=== PATIENT | male | born 1975 ===

== ENCOUNTER 2020-11-22 21:54 | Outpatient (CLI) | payer OTHER | END 2020-11-22 21:55 | disposition home or self-care (01) | LOC: PPH VACUNA 21:54 | DX: Z23 Encounter for immunization (principal) ==

== ENCOUNTER → 2020-12-13 16:38 | Outpatient (CLI) | payer OTHER | END | disposition home or self-care (01) | LOC: PPH VACUNA 16:38 | DX: Z23 Encounter for immunization (principal) ==